=== PATIENT | female | born 1965 | race African-American/Black ===

== ENCOUNTER 2022-05-17 15:33 | Emergency (ER) | payer OTHER ==
[~2022-05-17] VITALS: Ht 160 cm; Wt 90.9 kg
[2022-05-17 17:12] VITALS: BP 145/93
== END 2022-05-18 01:08 | disposition left against medical advice (07) ==
LOC: ER 15:33
DX: R21 Rash and other nonspecific skin eruption (principal); Z53.21 Procedure and treatment not carried out due to patient leaving prior to being seen by health care provider